=== PATIENT | male | born 1990 | race Caucasian/White ===

== ENCOUNTER 2020-01-18 13:24 | Emergency (ER) | payer OTHER, SELFPAY ==
[2020-01-18 13:42] VITALS: BP 111/68; PULSE 69; RESP 16; TEMP 36.8; O2SAT 100; BMI 18.8
[2020-01-18] MEDS: Tetracaine HCl/PF 0.5% Oph Sol 4 ML DROPS 3 DROP EYE-LEFT (14:09)
[2020-01-18] MEDS: Fluorescein Sodium STRIP 1 STRIP EYE-LEFT (14:09)
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
[2020-01-18] MEDS: Erythromycin Base 0.5% Oph Oin 1 GM TUBE 1 CM EYE-LEFT (14:43)
== END 2020-01-18 14:50 | disposition home or self-care (01) ==
PROVIDERS: Emergency Provider Emergency Medicine
DX: S05.02XA Injury of conjunctiva and corneal abrasion without foreign body, left eye, initial encounter (principal); H57.12 Ocular pain, left eye; X58.XXXA Exposure to other specified factors, initial encounter; Y93.9 Activity, unspecified; Y92.9 Unspecified place or not applicable; Y99.9 Unspecified external cause status
CPT/HCPCS: 99283

== ENCOUNTER 2020-06-02 09:14 | Emergency (ER) | payer OTHER, SELFPAY ==
[2020-06-02 09:25] VITALS: BP 119/70; PULSE 73; RESP 16; TEMP 36.8; O2SAT 98; BMI 18.8
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
[2020-06-02 09:35] VITALS: BP 115/68; PULSE 73; RESP 16; TEMP 36.8; O2SAT 96
[2020-06-02] MEDS: Magnesium Hydrox/Alum Hydrox 30 ML ORAL.SUSP PO (10:06)
[2020-06-02] MEDS: Lidocaine HCl Viscous 2 % 15 ML SOLUTION MUCOUS MEM (10:06)
[2020-06-02] MEDS: Omeprazole 40 MG CAPSULE.DR PO (10:06)
--- NOTE | 2020-06-02 10:37 | PC.NURSE ---
pt states that he feels fine denies any pain or abdominal discomfort at this time. denies n/v
== END 2020-06-02 10:47 | disposition home or self-care (01) ==
PROVIDERS: Emergency Provider Emergency Medicine; PCP Internal Medicine
DX: K29.00 Acute gastritis without bleeding (principal); F17.200 Nicotine dependence, unspecified, uncomplicated
CPT/HCPCS: 99283; 99284

== ENCOUNTER 2020-08-01 00:03 | Emergency (ER) | payer OTHER, SELFPAY ==
[2020-08-01 00:52] VITALS: BP 132/71; PULSE 67; RESP 18; TEMP 36.2; O2SAT 99; BMI 17.8
--- NOTE | 2020-08-01 01:21 | ED.EYEPROB ---
HPI - Eye Problem General Chief complaint: Eye Problems Stated complaint: eye issue Time Seen by Provider: 08/01/20 01:11 Source: patient Mode of arrival: ambulatory Limitations: no limitations History of Present Illness HPI Narrative: Patient comes emergency room complaining of bilateral eye injection, redness, scratchy sensation and photosensitivity. 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 Patient was wearing eye protection, but was wearing a mask that did not fit him well. Patient states he has had this before. Patient denies foreign bodies falling into his eyes. MD chief complaint: eye pain and eye redness Related Data Previous Rx's Medication Instructions Recorded erythromycin 0.5 inch OPHTHALMIC (EYE) TID 3 01/18/20 Days #1 g omeprazole 40 mg PO DAILY #14 cap 06/02/20 sucralfate [Carafate] 1 g PO BID #20 tab 06/02/20 erythromycin 0.5 inch OPHTHALMIC (EYE) TID #3.5 08/01/20 g Allergies Allergy/AdvReac Type Severity Reaction Status Date / Time codeine [CODEINE] Allergy Unknown NAUSEA Verified 08/01/20 00:52 ibuprofen [IBUPROFEN] Allergy Unknown KIDNEY Verified 08/01/20 00:52 ISSUES Review of Systems Review of Systems: Constitutional : No Weight loss, No Fever, No Chills, No Night Sweats, No Fatigue, No Malaise ENT/Mouth : No Hearing loss, No Ear Pain, No Nasal Congestion, No Sinus Pain, No Hoarseness, No sore throat, No Rhinorrhea, No Swallowing Difficulty Eyes: Bilateral eye pain, no swelling, bilateral redness, positive photosensitivity Cardiovascular : No Chest Pain, No SOB, No Dyspnea on Exertion, No Orthopnea, No Edema, No Palpitations Respiratory : No Cough, No Sputum, No Wheezing, No Smoke Exposure, No Dyspnea Gastrointestinal : No Nausea, No Vomiting, No Diarrhea, No Constipation, No abdominal Pain, No Hematochezia, No Melena Genitourinary : no irregular bleeding, No Dysuria, No Urinary Frequency, No Hematuria, No Urinary Incontinence, No Urgency, No Flank Pain, No Urinary Flow Changes, No Hesitancy Musculoskeletal : No joint pain, No Myalgias, No Joint Swelling Skin : No Skin Lesions, No rash Neuro : No Weakness, No Numbness, No Paresthesias, No Loss of Consciousness, No Dizziness, No Headache Psych : No Anxiety/Panic, No Depression, No SI/HI/AH/VH, No Social Issues, Heme/Lymph: No Bruising, No Bleeding,No Lymphadenopathy Endocrine : No Polyuria, No Polydipsia, No Temperature Intolerance [facility] Past Medical History Medical History Gastritis Social History Social History Alcohol intake: current Alcohol intake frequency: a few times a month Alcohol type: hard liquor Advance Directives: No Advance Directives Information Provided: No Physical Exam Vital Signs: Vital Signs: Last Vital Signs Temp 97.2 F 08/01/20 00:52 Pulse 67 08/01/20 00:52 Resp 18 08/01/20 00:52 BP 132/71 08/01/20 00:52 Pulse Ox 99 08/01/20 00:52 Body Mass Index 17.8 Appearance: Alert. Oriented X3. No acute distress. Eyes: Pupils equal, round and reactive to light. Bilateral injection, no pain with eye movement, no discharge. Visual acuity 20/20 bilaterally. No ulcerations on fluorescein stain test ENT: Pharynx normal. Neck: Normal inspection. Neck supple. No lymph nodes noted. No crepitus CVS: Normal heart rate and rhythm. Pulses normal. Normal S1 and S2 Respiratory: No respiratory distress. Breath sounds normal. No Wheezing. No rales Abdomen: Soft and nontender. No rigidity. No distention. good BS x4 Skin: Skin warm and dry. Normal skin color. Normal skin turgor. Extremities: No lower extremity edema. No lower extremity edema. No Lacerations. No Rash Neuro: Oriented X 3. No motor deficit. No sensory deficit. Moving all extermities. No slurred speech. Course Course Course Narrative: I discussed the physical exam with the patient, patient likely having follow keratitis secondary to welding. Discharge Plan Discharge Clinical Impression: Welders' keratitis of both eyes Patient Disposition: Home, Self-Care Instructions: Corneal Flash Amador (ED) Additional Instructions: Please follow-up with your primary care physician tomorrow. If you have any worsening or new symptoms, please return to the emergency room or call 911 Prescriptions: New erythromycin 5 mg/gram (0.5 %) ointment 0.5 inch ophthalmic (eye) TID Qty: 3.5 RF: 0 No Action erythromycin 5 mg/gram (0.5 %) ointment 0.5 inch ophthalmic (eye) TID 3 Days Qty: 1 RF: 0 omeprazole 40 mg capsule,delayed release(DR/EC) 40 mg PO DAILY Qty: 14 RF: 0 sucralfate [Carafate] 1 gram tablet 1 g PO BID Qty: 20 RF: 0
[2020-08-01] MEDS: Fluorescein Sodium STRIP 1 STRIP EYE-BOTH (01:33)
[2020-08-01] MEDS: Tetracaine HCl/PF 0.5% Oph Sol 4 ML DROPS 3 DROP EYE-BOTH (01:33)
== END 2020-08-01 01:52 | disposition home or self-care (01) ==
LOC: HO.ED 01:31
PROVIDERS: Emergency Provider Emergency Medicine; PCP Internal Medicine
DX: H16.133 Photokeratitis, bilateral (principal)
CPT/HCPCS: 99283